=== PATIENT | male | born 2005 | race Two or more races ===

== ENCOUNTER 2025-04-16 23:47 | Emergency (ER) | payer MEDICAID ==
[~2025-04-16] VITALS: Ht 165.1 cm; Wt 86.2 kg
[2025-04-17] MEDS ORDERED: ACETAMINOPHEN ES 500 MG TABLET ONE (00:47)
[2025-04-17] MEDS ORDERED: IBUPROFEN 600 MG TABLET ONE (00:47)
[2025-04-17] MEDS: ACETAMINOPHEN 325 MG TABLET PO ONE (00:53)
[2025-04-17] MEDS: IBUPROFEN 600 MG TABLET PO ONE (00:53)
[2025-04-17 01:11] VITALS: BP 130/82; TEMP 98.2; O2SAT 99
== END 2025-04-17 01:12 | disposition home or self-care (01) ==
LOC: ER 23:52
DX: S30.0XXA Contusion of lower back and pelvis, initial encounter (principal); S09.90XA Unspecified injury of head, initial encounter; W01.198A Fall on same level from slipping, tripping and stumbling with subsequent striking against other object, initial encounter; Y93.89 Activity, other specified; Y92.89 Other specified places as the place of occurrence of the external cause; Y99.8 Other external cause status